=== PATIENT | female | born 1980 | race Two or more races ===

== ENCOUNTER 2022-12-18 08:25 | Inpatient (IN) | payer OTHER ==
[~2022-12-18] VITALS: Ht 162.6 cm; Wt 68.0 kg
[2022-12-18 09:55] LABS: HEMATOCRIT 39.5 % (36.0-45.00); HEMOGLOBIN 13.2 g/dL (12.0-15.00); MEAN CELL VOLUME 88.9 fL (80.00-100.00); MEAN CORPUSCULAR HEMOGLOBIN 29.6 pg (27.00-32.0); MEAN CORPUSCULAR HGB CONC 33.3 g/dl (32.0-36.0); PLATELET COUNT 191 K/uL (150-450); RED BLOOD COUNT 4.44 M/uL (4.00-6.00); RED CELL DISTRIBUTION WIDTH 13.1 % (11.5-14.5)
[2022-12-18 10:31] LABS: CALCIUM 9.4 mg/dL (8.5-10.1); CREATININE SERUM 0.85 mg/dL (0.55-1.02); GFR 74.07; POTASSIUM 3.85 mEq/L (3.5-5.1)
[2022-12-18 12:57] LABS: INR 0.98; PARTIAL THROMBOPLASTIN TIME 27.8 SECONDS (22.0-34.0); PROTHROMBIN TIME 10.3 SECONDS (9.0-11.5)
[2022-12-19 04:29] LABS: HEMATOCRIT 32.7 % (36.0-45.00); MEAN CORPUSCULAR HEMOGLOBIN 29.6 pg (27.00-32.0); MEAN CORPUSCULAR HGB CONC 33.6 g/dl (32.0-36.0); PLATELET COUNT 164 K/uL (150-450); RED BLOOD COUNT 3.71 M/uL (4.00-6.00); RED CELL DISTRIBUTION WIDTH 13.2 % (11.5-14.5)
== END 2022-12-21 11:19 | disposition home or self-care (01) | DRG 742 ==
LOC: ER 08:25 → OB/GYN 15:49 → SEC-K 15:49 → O/R 16:56 → SEC-K 16:57 → O/R 18:05 → OB/GYN 23:24
PROVIDERS: General Practice; ADMIT Obstetrics & Gynecology; ATTEND Obstetrics & Gynecology
PROC: 0DN80ZZ Release Small Intestine, Open Approach (ICD-10-PCS; 2022-12-18)
PROC: 0DTJ0ZZ Resection of Appendix, Open Approach (ICD-10-PCS; 2022-12-18)
PROC: BU4CZZZ Ultrasonography of Uterus and Ovaries (ICD-10-PCS; 2022-12-18)
PROC: 0U920ZZ Drainage of Bilateral Ovaries, Open Approach (ICD-10-PCS; principal; 2022-12-18 16:00)
DX: N85.01 Benign endometrial hyperplasia (principal); K35.890 Other acute appendicitis without perforation or gangrene; Z20.822 Contact with and (suspected) exposure to COVID-19; K66.0 Peritoneal adhesions (postprocedural) (postinfection)